=== PATIENT | male | born 1970 | race Caucasian/White ===

== ENCOUNTER 2021-06-21 12:00 | Emergency (ER) | payer OTHER ==
[~2021-06-21] VITALS: Ht 165.1 cm; Wt 64.0 kg
[2021-06-21] MEDS ORDERED: NS 1,000 ML IV ONE (12:40)
[2021-06-21] MEDS ORDERED: LORazepam 2 MG/ML VIAL IV STA (12:40)
--- NOTE | 2021-06-21 13:01 | REP ---
INDICATION: trauma COMPARISON: None. TECHNIQUE: Axial noncontrast images from the skull base to the vertex with coronal reformations. This CT examination was performed using the following dose reduction techniques: Automated exposure control, adjustment of mA and/or kv according to the patient's size, and use of iterative reconstruction technique. FINDINGS: The ventricles, sulci, and cisterns are normal in position and appearance. Alvarado-white differentiation is maintained. No acute intracranial hemorrhage, mass/mass effect, pathology or trauma/injury. No evidence for acute infarction. No extra-axial fluid collection. Calvarium is intact. Paranasal sinuses and mastoid air cells are clear. IMPRESSION: Normal noncontrast head CT. No evidence for acute intracranial pathology or trauma/injury. <Electronically signed by Paras Dye > 06/21/21 [id number]
[2021-06-21] MEDS ORDERED: B-1100TA2 PO (13:08)
[2021-06-21] MEDS ORDERED: NALT50TA4 PO (13:08)
[2021-06-21] MEDS ORDERED: SERT50TA29 PO (13:08)
[2021-06-21] MEDS ORDERED: CLON-412 PO (13:08)
--- NOTE | 2021-06-21 13:19 | REP ---
INDICATION: trauma COMPARISON: None. TECHNIQUE: Frontal view of the chest with multiple views of the left hemithorax. FINDINGS: Frontal view of the chest demonstrates no obvious acute consolidation/contusion, effusion, or pneumothorax. There are mildly displaced posterolateral right 6th-8th rib fractures which require correlation. Multiple views of the left hemithorax demonstrates few nonacute healing fractures as well as acute nondisplaced fracture along the lateral aspect of the left 11th and 12th ribs. IMPRESSION: Acute and old rib fractures as noted above. <Electronically signed by Paras Dye > 06/21/21 [id number]
[2021-06-21] MEDS ORDERED: OXAZEPAM 15 MG CAP PO ONE (15:05)
[2021-06-21] MEDS ORDERED: OXAZ30CA2 PO (16:25)
[2021-06-21 16:30] VITALS: BP 144/90
== END 2021-06-21 16:51 | disposition home or self-care (01) ==
LOC: M ED 12:00
DX: F10.288 Alcohol dependence with other alcohol-induced disorder (principal); R56.9 Unspecified convulsions; S22.42XA Multiple fractures of ribs, left side, initial encounter for closed fracture; Y92.9 Unspecified place or not applicable; Y93.9 Activity, unspecified; Y99.9 Unspecified external cause status; F17.200 Nicotine dependence, unspecified, uncomplicated; Z88.1 Allergy status to other antibiotic agents; Z88.2 Allergy status to sulfonamides
CPT/HCPCS: 70450; 71101; 94010; 96361; 96374; 99285; J2060